=== PATIENT | male | born 1980 | race African-American/Black ===

== ENCOUNTER 2017-04-11 19:44 | Emergency (ER) | payer SELFPAY ==
[~2017-04-11] VITALS: Ht 167.6 cm; Wt 86.2 kg
[2017-04-11] MEDS ORDERED: IV NORMAL SALINE 1000ML BAG 1,000 ML IV SCH ×3 (19:52→20:27)
[2017-04-11] MEDS ORDERED: IV DEXTROSE 5 %-0.45 % NACL 1,000 ML IV SCH (19:55)
[2017-04-11] MEDS ORDERED: INSULIN REGULAR VIAL 150 UNIT in 0.9 % SODIUM CHLORIDE 150ML 150 ML IV PRN (20:00)
[2017-04-11] MEDS ORDERED: KETOROLAC TROMETHAMINE 30 MG/ML INJ. IV ONE (20:00)
[2017-04-11] MEDS ORDERED: HYDROmorphone 2 MG/ML VIAL IV/SQ PRN (20:00)
[2017-04-11] MEDS ORDERED: ONDANSETRON PF 4 MG/2 ML VIAL. IV ONE (20:00)
[2017-04-11] MEDS ORDERED: POTASSIUM CHLORIDE 10MEQ 100 ML IV PRN ×3 (20:00)
[2017-04-11] MEDS ORDERED: 0.9 % SODIUM CHLORIDE 10 ML DISP.SYRIN. IV PRN ×2 (20:00→20:30)
--- NOTE | 2017-04-11 20:08 | PHYS DOC ---
Past Medical History Past Medical History: Asthma, Kidney Stone Past Surgical History: Other Additional Past Surgical Histo: LITHOTRIPSY,BILAT ORIF FEMUR Alcohol Use: Occasionally Drug Use: None Adult General Chief Complaint Chief Complaint: ABDOMINAL PAIN [facility] HPI Patient is a 36 year old -[place] male with history of kidney stones and asthma who presents with flank pain that began early this morning. Patient feels like it's his prior kidney stones with pain that began in the flank on the left with radiation to the left lower groin. Impression is expressing some nausea without vomiting no diarrhea past patient isn't pain is worse with range of motion of the hip as well as the abdomen with twisting. Patient also says pain is also increased with eating. He denies any fevers, chills, UTI symptoms except he did remember that the pain began when he was urinating this morning. He denies any hematuria, denies any penile discharge or history of STDs. He denies any direct trauma. He does work in an and air-conditioned environment and he said frequent kidney stones in the past. He recalls a history of renal failure acutely with obstruction. His pain Presently is 7 of 10 patient did not take any pain medications prior to arrival. He's been trying to drink a great deal fluids. Review of Systems Review of Systems Constitutional: Patient denies any fevers but has had some chills with flank pain. Eyes: Denies change in visual acuity, redness, or eye pain [] HENT: Denies nasal congestion or sore throat [] Respiratory: Denies cough or shortness of breath [] Cardiovascular: No additional information not addressed in HPI [] GI: Describes left flank pain with radiation to the left lower quadrant. With some nausea without vomiting no diarrhea or constipation. : Denies dysuria or hematuria [] Musculoskeletal: He does have some back pain on the left that is related to the abdominal wall pain. Integument: Denies rash or skin lesions [] Neurologic: Denies headache, focal weakness or sensory changes [] Endocrine: Denies polyuria or polydipsia [] Current Medications Current Medications Current Medications Medications (Trade) Dose Ordered Sig/Guillermo Start Time Stop Time Status Last Admin Dose Admin Dextrose/Sodium Chloride 1,000 ml @ 250 mls/hr Q4H 04/11/17 19:55 Cancel Hydromorphone HCl (Dilaudid) 1 mg PRN Q15MIN PRN 7/18/17 20:00 04/11/17 20:11 DC Insulin Human Regular 150 unit/ Sodium Chloride 151.5 ml @ 0 mls/hr CONT PRN PRN 04/11/17 20:00 Cancel Ketorolac Tromethamine (Toradol) 30 mg 1X ONCE 04/11/17 20:00 04/11/17 20:07 DC 04/11/17 20:13 30 MG Ondansetron HCl (Zofran) 4 mg 1X ONCE 04/11/17 20:00 04/11/17 20:11 DC 04/11/17 20:13 4 MG Potassium Chloride 100 ml @ 100 mls/hr PRN Q1HR PRN 04/11/17 20:00 Cancel Sodium Chloride (Normal Saline Flush) 10 ml QSHIFT PRN 04/11/17 20:30 04/11/17 20:37 10 ML Allergies Allergies Allergies Coded Allergies Type Severity Reaction Last Updated Verified No Known Drug Allergies 03/03/16 No Physical Exam Physical Exam This patient's vital signs were reviewed upon arrival patient noted to be hypertensive. As normal vital signs. Constitutional: Well developed, well nourished, she looks like he is uncomfortable but not diaphoretic on toxic in appearance HENT: Normocephalic, atraumatic, bilateral external ears normal, oropharynx moist, no oral exudates, nose normal. [] Cardiovascular:Heart rate regular rhythm, no murmur [] Lungs & Thorax: Bilateral breath sounds clear to auscultation [] Abdomen: Bowel sounds normal, soft, no tenderness, no masses, no pulsatile masses. [] Skin: Warm, dry, no erythema, no rash. [] Back: No tenderness, does demonstrates CVA tenderness on the left. Extremities: No tenderness, no cyanosis, no clubbing, ROM intact, no edema. [] Neurologic: Alert and oriented X 3, normal motor function, normal sensory function, no focal deficits noted. [] Psychologic: Affect normal, judgement normal, mood normal. [] Current Patient Data Vital Signs Vital Signs Date Time Temp Pulse Resp B/P (MAP) Pulse Ox O2 Delivery O2 Flow Rate FiO2 04/11/17 21:40 88 18 130/78 (95) 99 Room Air 04/11/17 19:59 97.9 97.9 Lab Values Laboratory Tests Test 04/11/17 20:00 04/11/17 22:39 White Blood Count 8.7 x10^3/uL (4.0-11.0) Red Blood Count 5.03 x10^6/uL (4.30-5.70) Hemoglobin 14.6 g/dL (13.0-17.5) Hematocrit 44.8 % (39.0-53.0) Mean Corpuscular Volume 89 fL (79-100) Mean Corpuscular Hemoglobin 29 pg (25-35) Mean Corpuscular Hemoglobin Concent 33 g/dL (31-37) Red Cell Distribution Width 13.7 % (11.5-14.5) Platelet Count 324 x10^3/uL (140-400) Neutrophils (%) (Auto) 61 % (31-73) Lymphocytes (%) (Auto) 24 % (24-48) Monocytes (%) (Auto) 11 % (0-9) H Eosinophils (%) (Auto) 3 % (0-3) Basophils (%) (Auto) 1 % (0-3) Neutrophils # (Auto) 5.3 x10^3uL (1.8-7.7) Lymphocytes # (Auto) 2.1 x10^3/uL (1.0-4.8) Monocytes # (Auto) 1.0 x10^3/uL (0.0-1.1) Eosinophils # (Auto) 0.3 x10^3/uL (0.0-0.7) Basophils # (Auto) 0.0 x10^3/uL (0.0-0.2) Sodium Level 142 mmol/L (136-145) Potassium Level 3.5 mmol/L (3.5-5.1) Chloride Level 106 mmol/L (98-107) Carbon Dioxide Level 28 mmol/L (21-32) Anion Gap 8 (6-14) Blood Urea Nitrogen 15 mg/dL (8-26) Creatinine 1.2 mg/dL (0.7-1.3) Estimated GFR (Cockcroft-Gault) 82.4 BUN/Creatinine Ratio 13 (6-20) Glucose Level 102 mg/dL (70-99) H Calcium Level 8.8 mg/dL (8.5-10.1) Total Bilirubin 0.3 mg/dL (0.2-1.0) Aspartate Amino Transferase (AST) 23 U/L (15-37) Alanine Aminotransferase (ALT) 39 U/L (16-63) Alkaline Phosphatase 79 U/L (46-116) Total Protein 7.3 g/dL (6.4-8.2) Albumin 3.6 g/dL (3.4-5.0) Albumin/Globulin Ratio 1.0 (1.0-1.7) Lipase 118 U/L (73-393) Urine Collection Type U cath Urine Color Yellow Urine Clarity Clear Urine pH 5.5 Urine Specific [place] 1.025 Urine Protein Negative mg/dL (NEG-TRACE) Urine Glucose (UA) Negative mg/dL (NEG) Urine Ketones (Stick) Negative mg/dL (NEG) Urine Blood Moderate (NEG) Urine Nitrite Negative (NEG) Urine Bilirubin Negative (NEG) Urine Urobilinogen Dipstick 0.2 mg/dL (0.2 mg/dL) Urine Leukocyte Esterase Negative (NEG) Urine RBC 11-20 /HPF (0-2) Urine WBC 1-4 /HPF (0-4) Urine Bacteria 0 /HPF (0-FEW) Urine Hyaline Casts Few /HPF Urine Mucus Mod /LPF Laboratory Tests 04/11/17 20:00 Laboratory Tests 04/11/17 20:00 EKG EKG [] Radiology/Procedures Radiology/Procedures [] [address] [place] [address] IMAGING REPORT Signed PATIENT: HENRY DEWITT ACCOUNT: [id number] : 1980 LOCATION: ER AGE: 36 SEX: M EXAM STATUS: REG ER ORD. PHYSICIAN: FRANKIE AGUIRRE MD REASON: left flank pain with history of kidney stones PROCEDURE: CT ABDOMEN PELVIS WO CONTRAST CT study of the abdomen and pelvis without contrast Clinical indications: Severe left flank pain since yesterday. History of kidney stones. TECHNIQUE: Noncontrast helical CT scanning of the abdomen and pelvis was performed. Without contrast, the sensitivity to detect organ pathology and GI tract pathology is decreased. PQRS compliance Statement One or more of the following individualized dose reduction techniques were utilized for this study: 1. Automated exposure control 2. Adjustment of the mA and/or kV according to patient size 3. Use of iterative reconstruction technique COMPARISON: CT study March 03, 2016. FINDINGS: The liver and spleen and pancreas are homogeneous in appearance on this noncontrast study. The gallbladder is normal and no extra hepatic biliary ductal dilatation is seen. No adrenal mass is evident. There is moderate left-sided hydronephrosis and proximal left hydroureter due to a stone within the proximal left ureter measuring 4 mm in size located 2 cm distal to the UPJ. No hydronephrosis is seen on the right side. Urinary bladder wall is smooth. No focal aneurysmal dilatation of the abdominal aorta is seen. No enlarged abdominal or pelvic lymphadenopathy is seen. No obstructive bowel pattern is seen. No free air or free fluid or mesenteric inflammatory change is seen. No lung base consolidation is evident. No osteolytic process is seen. IMPRESSION: Moderate left-sided hydronephrosis and proximal left hydroureter due to a 4 mm stone located within the proximal left ureter 2 cm from the UPJ. Electronically signed by: Enoch Vásquez MD (04/11/2017 9:53 PM) [facility] [id number] DICTATED and SIGNED BY: ENOCH VÁSQUEZ MD DATE: 04/11/17 2149 CC: FRANKIE AGUIRRE MD; UNKNOWN PCP NAME ~ Course & Med Decision Making Course & Med Decision Making Pertinent Labs and Imaging studies reviewed. (See chart for details) Initially presents with flank pain concerning presentation for possible kidney stone. Patient has no fevers, no chills at this time. He is able to produce urine without issue. My concern is a kidney stone during his history of renal failure secondary to obstruction while the CAT scan completed as well as CMP CBC and urinalysis. In the interim he'll be provided fluids, antiemetics and pain meds. Patient's laboratory work was reviewed by me patient's CBC is normal, CMP is normal, lipase is normal, urinalysis is still pending at this time. Patient's CT abdomen and pelvis demonstrates a kidney stone Moderate left-sided hydronephrosis and proximal left hydroureter due to a 4 mm stone located within the proximal left ureter 2 cm from the UPJ. Patient's pain is improved and is under better control at 10:10 PM patient is not giving us a urine sample. Time is now 11 PM patient's urinalysis finally complete demonstrates no signs of infection. He has red blood cells without bacteria or white blood cells. Patient is feeling markedly better already patient we provided literature and medications to treat his kidney stone. Which at 4 mm is likely to pass spontaneously. He's been given precautions reasons to return. Asked to follow- up with his urologist as an outpatient on his discretion. [] Dragon Disclaimer Dragon Disclaimer This electronic medical record was generated, in whole or in part, using a voice recognition dictation system. Departure Departure Impression: Primary Impression: Ureteral calculus, left Disposition: HOME, SELF-CARE Condition: IMPROVED Referrals: UNKNOWN PCP NAME (PCP) Patient Instructions: Diet for Kidney Stones, Kidney Stones Additional Instructions: Please return for any new or increasing symptoms, if he cannot urinate greater than 12 hours, if you have any fever greater than 102.2 and pain with urination or given any question concerns. These return if your pain is not well controlled with oral medications.. Scripts Ondansetron (ZOFRAN ODT) 4 Mg Tab.rapdis 4 MG PO BID Y for NAUSEA/VOMITING for 5 Days, #10 TAB Prov: FRANKIE AGUIRRE MD 04/11/17 Naproxen (NAPROSYN) 500 Mg Tablet 1 TAB PO BID, #14 TAB 1 Refill Prov: FRANKIE AGUIRRE MD 04/11/17 Hydrocodone Bit/Acetaminophen (HYDROCODONE-APAP 5-325 ) 1 Each Tablet 1-2 TAB PO PRN Q6HRS Y for PAIN for 5 Days, #15 TAB 0 Refills Prov: FRANKIE AGUIRRE MD 04/11/17 Tamsulosin Hcl (FLOMAX) 0.4 Mg Cap.er.24h 1 CAP PO DAILY, #30 CAP 11 Refills Prov: FRANKIE AGUIRRE MD 04/11/17 FRANKIE AGUIRRE MD Apr 11, 2017 20:08
[2017-04-11 20:36] LABS: BASO % 1 % (0-3); EOS % 3 % (0-3); HEMATOCRIT 44.8 % (39.0-53.0); HEMOGLOBIN 14.6 g/dL (13.0-17.5); LYMPH # 2.1 x10^3/uL (1.0-4.8); LYMPH % 24 % (24-48); MEAN CORPUSCULAR HEMOGLOBIN 29 pg (25-35); MEAN CORPUSCULAR HGB CONC 33 g/dL (31-37); MEAN CORPUSCULAR VOLUME 89 fL (79-100); MONO % 11 % (0-9); NEUT % 61 % (31-73); PLATELET COUNT 324 x10^3/uL (140-400); RED BLOOD COUNT 5.03 x10^6/uL (4.30-5.70); RED CELL DISTRIBUTION WIDTH 13.7 % (11.5-14.5); WHITE BLOOD COUNT 8.7 x10^3/uL (4.0-11.0)
[2017-04-11 20:56] LABS: CALCIUM 8.8 mg/dL (8.5-10.1); CREATININE 1.2 mg/dL (0.7-1.3); GFR 82.4; POTASSIUM 3.5 mmol/L (3.5-5.1)
[2017-04-11 21:01] LABS: ALBUMIN 3.6 g/dL (3.4-5.0); TOTAL BILIRUBIN 0.3 mg/dL (0.2-1.0); TOTAL PROTEIN 7.3 g/dL (6.4-8.2)
[2017-04-11 21:40] VITALS: BP 130/78
--- NOTE | 2017-04-11 21:56 | RAD ---
CT study of the abdomen and pelvis without contrast Clinical indications: Severe left flank pain since yesterday. History of kidney stones. TECHNIQUE: Noncontrast helical CT scanning of the abdomen and pelvis was performed. Without contrast, the sensitivity to detect organ pathology and GI tract pathology is decreased. PQRS compliance Statement One or more of the following individualized dose reduction techniques were utilized for this study: 1. Automated exposure control 2. Adjustment of the mA and/or kV according to patient size 3. Use of iterative reconstruction technique COMPARISON: CT study March 03, 2016. FINDINGS: The liver and spleen and pancreas are homogeneous in appearance on this noncontrast study. The gallbladder is normal and no extra hepatic biliary ductal dilatation is seen. No adrenal mass is evident. There is moderate left-sided hydronephrosis and proximal left hydroureter due to a stone within the proximal left ureter measuring 4 mm in size located 2 cm distal to the UPJ. No hydronephrosis is seen on the right side. Urinary bladder wall is smooth. No focal aneurysmal dilatation of the abdominal aorta is seen. No enlarged abdominal or pelvic lymphadenopathy is seen. No obstructive bowel pattern is seen. No free air or free fluid or mesenteric inflammatory change is seen. No lung base consolidation is evident. No osteolytic process is seen. IMPRESSION: Moderate left-sided hydronephrosis and proximal left hydroureter due to a 4 mm stone located within the proximal left ureter 2 cm from the UPJ. Electronically signed by: Anthony Vásquez MD (04/11/2017 9:53 PM) [facility]
[2017-04-11 22:47] LABS: BILIRUBIN,URINE NEGATIVE (NEG); GLUCOSE,URINE NEGATIVE (NEG); NITRITE,URINE NEGATIVE (NEG); PH,URINE 5.5; PROTEIN,URINE NEGATIVE (NEG-TRACE); UROBILINOGEN,URINE 0.2 mg/dL (0.2 mg/dL)
[2017-04-11 22:53] LABS: BACTERIA,URINE 0 /HPF (0-FEW)
[2017-04-11] MEDS ORDERED: HYDR-2758 PO (23:05)
[2017-04-11] MEDS ORDERED: TAMS0.4C97 PO (23:05)
[2017-04-11] MEDS ORDERED: ONDA4TAB10 PO (23:06)
[2017-04-11] MEDS ORDERED: NAPR500T PO (23:06)
== END 2017-04-11 23:17 | disposition home or self-care (01) ==
LOC: ER 19:55
DX: N20.1 Calculus of ureter (principal); Z87.442 Personal history of urinary calculi; J45.909 Unspecified asthma, uncomplicated
CPT/HCPCS: 36415; 51701; 74176; 80053; 81001; 83690; 85027; 96361; 96374; 96375; 99285; J1885; J2405; J7030

== ENCOUNTER 2019-05-05 13:12 | Emergency (ER) | payer SELFPAY ==
[~2019-05-05] VITALS: Ht 167.6 cm; Wt 83.9 kg
[~2019-05-05 13:12] MED LIST: CEPH-264 PO; HYDR-2761 PO; NAPR-683 PO; ONDA4TAB10 PO; TAMS0.4C97 PO
[2019-05-05] MEDS ORDERED: IV NORMAL SALINE 1000ML BAG 1,000 ML IV ONE (13:15)
--- NOTE | 2019-05-05 13:22 | PHYS DOC ---
Past Medical History Past Medical History: Asthma, Kidney Stone Past Surgical History: Other Additional Past Surgical Histo: LITHOTRIPSY,BILAT ORIF FEMUR Alcohol Use: Occasionally Drug Use: None Adult General Chief Complaint Chief Complaint: NEAR SYNCOPE HPI HPI Patient is a 38 year old male who brought in by EMS for passing out during donating plasma. Patient states he donated plasma twice a week and today while he was at the end of donating plasma on the bed felt dizzy and had loss of consc iousness. Plasma center staff stated he had seizure activity lasted for a few seconds. EMS reported that the patient was not postictal condition and the presentation was not likely a seizure activity. Patient denies any pain and complaining of mild weakness. Patient states he didn't eat like his usual today. Review of Systems Review of Systems Constitutional: Denies fever or chills [] Eyes: Denies change in visual acuity, redness, or eye pain [] HENT: Denies nasal congestion or sore throat [] Respiratory: Denies cough or shortness of breath [] Cardiovascular: No additional information not addressed in HPI [] GI: Denies abdominal pain, nausea, vomiting, bloody stools or diarrhea [] : Denies dysuria or hematuria [] Musculoskeletal: Denies back pain or joint pain [] Integument: Denies rash or skin lesions [] Neurologic: Denies headache, focal weakness or sensory changes [] Endocrine: Denies polyuria or polydipsia [] All other systems were reviewed and found to be within normal limits, except as documented in this note. Current Medications Current Medications Current Medications Medications (Trade) Dose Ordered Sig/[facility] Start Time Stop Time Status Last Admin Dose Admin Sodium Chloride 1,000 ml @ 1,000 mls/hr 1X ONCE 05/05/19 13:15 05/05/19 14:14 DC 05/05/19 14:14 1,000 MLS/HR Allergies Allergies Allergies Coded Allergies Type Severity Reaction Last Updated Verified No Known Drug Allergies 03/03/16 No Physical Exam Physical Exam Constitutional: Well developed, well nourished, no acute distress, non-toxic appearance. [] HENT: Normocephalic, atraumatic, oropharynx moist, no tongue injury. Eyes: PERRLA, EOMI, conjunctiva normal, no discharge. [] Neck: Normal range of motion, no tenderness, supple, no stridor. [] Cardiovascular:Heart rate regular rhythm, no murmur [] Lungs & Thorax: Bilateral breath sounds clear to auscultation [] Abdomen: Bowel sounds normal, soft, no tenderness, no masses, no pulsatile masses. [] Skin: Warm, dry, no erythema, no rash. [] Back: No tenderness, no CVA tenderness. [] Extremities: No tenderness, no cyanosis, no clubbing, ROM intact, no edema. [] Neurologic: Alert and oriented X 3, normal motor function, normal sensory function, no focal deficits noted. [] Psychologic: Affect normal, judgement normal, mood normal. [] Current Patient Data Vital Signs Vital Signs Date Time Temp Pulse Resp B/P (MAP) Pulse Ox O2 Delivery O2 Flow Rate FiO2 05/05/19 13:20 97.9 79 18 117/74 (88) 95 Room Air 97.9 Lab Values Laboratory Tests Test 05/05/19 13:50 05/05/19 14:10 05/05/19 15:42 Sodium Level 146 mmol/L (136-145) H Potassium Level 3.4 mmol/L (3.5-5.1) L Chloride Level 105 mmol/L (98-107) Carbon Dioxide Level 30 mmol/L (21-32) Anion Gap 11 (6-14) Blood Urea Nitrogen 8 mg/dL (8-26) Creatinine 1.2 mg/dL (0.7-1.3) Estimated GFR (Cockcroft-Gault) 81.6 BUN/Creatinine Ratio 7 (6-20) Glucose Level 137 mg/dL (70-99) H Calcium Level 8.5 mg/dL (8.5-10.1) Total Bilirubin 0.4 mg/dL (0.2-1.0) Aspartate Amino Transferase (AST) 20 U/L (15-37) Alanine Aminotransferase (ALT) 25 U/L (16-63) Alkaline Phosphatase 61 U/L (46-116) Troponin I Quantitative 0.072 ng/mL (0.000-0.055) 0.060 ng/mL (0.000-0.055) Total Protein 6.4 g/dL (6.4-8.2) Albumin 3.1 g/dL (3.4-5.0) L Albumin/Globulin Ratio 0.9 (1.0-1.7) L White Blood Count 15.1 x10^3/uL (4.0-11.0) H Red Blood Count 6.12 x10^6/uL (4.30-5.70) H Hemoglobin 18.1 g/dL (13.0-17.5) H Hematocrit 54.0 % (39.0-53.0) H Mean Corpuscular Volume 88 fL (79-100) Mean Corpuscular Hemoglobin 30 pg (25-35) Mean Corpuscular Hemoglobin Concent 34 g/dL (31-37) Red Cell Distribution Width 14.3 % (11.5-14.5) Platelet Count 335 x10^3/uL (140-400) Neutrophils (%) (Auto) 76 % (31-73) H Lymphocytes (%) (Auto) 15 % (24-48) L Monocytes (%) (Auto) 7 % (0-9) Eosinophils (%) (Auto) 2 % (0-3) Basophils (%) (Auto) 1 % (0-3) Neutrophils # (Auto) 11.5 x10^3/uL (1.8-7.7) H Lymphocytes # (Auto) 2.2 x10^3/uL (1.0-4.8) Monocytes # (Auto) 1.1 x10^3/uL (0.0-1.1) Eosinophils # (Auto) 0.3 x10^3/uL (0.0-0.7) Basophils # (Auto) 0.1 x10^3/uL (0.0-0.2) Laboratory Tests 05/05/19 14:10 Laboratory Tests 05/05/19 13:50 EKG EKG EKG interpreted by me. EKG at 1331 showed normal sinus rhythm at rate of 78, no acute ST and T-wave abnormalities, normal DC and QT intervals. Radiology/Procedures Radiology/Procedures [facility] [address] [place] [address] IMAGING REPORT Signed PATIENT: HENRY DEWITT ACCOUNT: [id number] : 1980 LOCATION: ER AGE: 38 SEX: M EXAM STATUS: PRE ER ORD. PHYSICIAN: ARMOND NAVARRO MD REASON: possible seizure PROCEDURE: CT HEAD WO CONTRAST PQRS Compliance Statement: One or more of the following individualized dose reduction techniques were utilized for this examination: 1. Automated exposure control 2. Adjustment of the mA and/or kV according to patient size 3. Use of iterative reconstruction technique CT HEAD WITHOUT CONTRAST History: Possible seizure. Comparison: None. Procedure: Axial images are obtained of the head from the skull base through the vertex without IV contrast. Findings: The ventricles and sulci are normal for the patient's age. No mass-effect, midline shift, hemorrhage, extra-axial fluid collection, or obvious acute infarction is identified. Basilar cisterns are patent. Bone windows demonstrate no acute calvarial abnormality. Mucosal thickening bilateral ethmoid sinuses. Minimal mucosal thickening bilateral sphenoid sinuses. Maxillary sinuses mostly not imaged. Mastoid air cells are well aerated. IMPRESSION: No acute intracranial abnormality. Electronically signed by: Gianfranco Conner MD (05/05/2019 1:51 PM) [facility] DICTATED and SIGNED BY: GIANFRANCO CONNER MD DATE: 05/05/19 9867 Course & Med Decision Making Course & Med Decision Making Pertinent Labs and Imaging studies reviewed. (See chart for details) Evaluation of patient in ER showed 38-year-old male patient brought in by EMS because of near-syncope and questionable seizure activity after donation plasma. Patient had unremarkable CT of head and EKG. Labs showed elevation of troponin and repeat pulling D showed decrease of urine. Patient did not have chest pain and was alert and oriented and ambulated without problem. Patient treated with IV fluids with improvement of his condition and was advised to increase fluid intake. Dragon Disclaimer Dragon Disclaimer This electronic medical record was generated, in whole or in part, using a voice recognition dictation system. Departure Departure Impression: Primary Impression: Vasovagal near syncope Additional Impressions: Dehydration Elevated troponin I level Hypokalemia Disposition: 01 HOME, SELF-CARE (at 1635) Condition: IMPROVED Referrals: UNKNOWN PCP NAME (PCP) Patient Instructions: Dehydration, Adult, Dizziness, Hypokalemia Additional Instructions: Drink plenty of liquids Follow-up with your primary care physician in 3-5 days Return to ER if not getting better Problem Qualifiers ARMOND NAVARRO MD May 05, 2019 13:22
--- NOTE | 2019-05-05 13:54 | RAD ---
PQRS Compliance Statement: One or more of the following individualized dose reduction techniques were utilized for this examination: 1. Automated exposure control 2. Adjustment of the mA and/or kV according to patient size 3. Use of iterative reconstruction technique CT HEAD WITHOUT CONTRAST History: Possible seizure. Comparison: None. Procedure: Axial images are obtained of the head from the skull base through the vertex without IV contrast. Findings: The ventricles and sulci are normal for the patient's age. No mass-effect, midline shift, hemorrhage, extra-axial fluid collection, or obvious acute infarction is identified. Basilar cisterns are patent. Bone windows demonstrate no acute calvarial abnormality. Mucosal thickening bilateral ethmoid sinuses. Minimal mucosal thickening bilateral sphenoid sinuses. Maxillary sinuses mostly not imaged. Mastoid air cells are well aerated. IMPRESSION: No acute intracranial abnormality. Electronically signed by: Obdulio Mir MD (05/05/2019 1:51 PM) [facility]
[2019-05-05 14:28] LABS: BASO # 0.1 x10^3/uL (0.0-0.2); BASO % 1 % (0-3); EOS # 0.3 x10^3/uL (0.0-0.7); EOS % 2 % (0-3); HEMOGLOBIN 18.1 g/dL (13.0-17.5); LYMPH # 2.2 x10^3/uL (1.0-4.8); LYMPH % 15 % (24-48); MEAN CORPUSCULAR HEMOGLOBIN 30 pg (25-35); MEAN CORPUSCULAR HGB CONC 34 g/dL (31-37); MEAN CORPUSCULAR VOLUME 88 fL (79-100); MONO # 1.1 x10^3/uL (0.0-1.1); MONO % 7 % (0-9); NEUT # 11.5 x10^3/uL (1.8-7.7); NEUT % 76 % (31-73); PLATELET COUNT 335 x10^3/uL (140-400); RED BLOOD COUNT 6.12 x10^6/uL (4.30-5.70); RED CELL DISTRIBUTION WIDTH 14.3 % (11.5-14.5); WHITE BLOOD COUNT 15.1 x10^3/uL (4.0-11.0)
[2019-05-05 14:41] LABS: ALBUMIN 3.1 g/dL (3.4-5.0); ALBUMIN/GLOBULIN RATIO 0.9 (1.0-1.7); CALCIUM 8.5 mg/dL (8.5-10.1); POTASSIUM 3.4 mmol/L (3.5-5.1); TOTAL BILIRUBIN 0.4 mg/dL (0.2-1.0); TOTAL PROTEIN 6.4 g/dL (6.4-8.2)
[2019-05-05 14:47] LABS: CREATININE 1.2 mg/dL (0.7-1.3); GFR 81.6
[2019-05-05 16:00] VITALS: BP 100/66
--- NOTE | 2019-05-06 06:30 | EKG ---
[facility] [address] [place] [address] Test Date: 2019-05-05 Test Time: 13:31:11 Pat Name: HENRY DEWITT Department: Room: Gender: Court Administrator: : 1980 Requested By: ARMOND NAVARRO Order Number: [id number] Reading MD: Measurements Intervals [place] Rate: 78 P: 30 SC: 120 QRS: 28 QRSD: 72 T: 44 QT: 364 QTc: 418 Interpretive Statements SINUS RHYTHM R-S TRANSITION ZONE IN V LEADS DISPLACED TO THE RIGHT OTHERWISE NORMAL ECG RI6.01 No previous ECG available for comparison
== END 2019-05-05 17:02 | disposition home or self-care (01) ==
LOC: ER 13:12
DX: R55 Syncope and collapse (principal); E86.0 Dehydration; E87.6 Hypokalemia; R79.89 Other specified abnormal findings of blood chemistry; R56.9 Unspecified convulsions; J45.909 Unspecified asthma, uncomplicated; Z87.442 Personal history of urinary calculi
CPT/HCPCS: 36415; 70450; 80053; 84484; 85025; 93005; 96360; 99285; J7030

== ENCOUNTER 2019-07-26 18:50 | Emergency (ER) | payer SELFPAY ==
[~2019-07-26] VITALS: Ht 167.6 cm; Wt 89.8 kg
[2019-07-26 19:07] VITALS: BP 170/90
[2019-07-26] MEDS ORDERED: MELO7.5T5 PO (20:37)
--- NOTE | 2019-07-26 20:37 | PHYS DOC ---
Past Medical History Past Medical History: Asthma, Kidney Stone (LIZANDRO JOEL APRN) Past Surgical History: Other Additional Past Surgical Histo: LITHOTRIPSY,BILAT ORIF FEMUR (LIZANDRO JOEL APRN) Alcohol Use: Occasionally Drug Use: None (LIZANDRO JOEL APRN) Attending Signature I have participated in the care of this patient and I have reviewed and agree with all pertinent clinical information above including history, exam, and recommendations. (ANTONI CHACKO MD) Adult General Chief Complaint Chief Complaint: SHOULDER INJURY HPI HPI Patient is a 39 year old male who presents with chronic shoulder pain from overuse and playing sports when younger. Patient states he was seen last week and given a Toradol shot in the ER and states help. Patient states he started urine new job with [employer] and he has increased movement with the right shoulder does cause increased pain. Patient rates his pain 8 out of 10. Patient states he has been using icy hot, lidocaine patches, naproxen, ibuprofen, ice or heat. (LIZANDRO JOEL APRN) Review of Systems Review of Systems Musculoskeletal: Denies back pain. Right shoulder pain joint pain [] All other systems were reviewed and found to be within normal limits, except as documented in this note. (LIZANDRO JOEL APRN) Allergies Allergies Allergies Coded Allergies Type Severity Reaction Last Updated Verified No Known Drug Allergies 03/03/16 No (ANTONI CHACKO MD) Physical Exam Physical Exam Constitutional: Well developed, well nourished, no acute distress, non-toxic appearance. [] Skin: Warm, dry, no erythema, no rash. [] Extremities: No tenderness, no cyanosis, no clubbing, Rigth shoulder ROM intact but painful, no edema. [] Neurologic: Alert and oriented X 3, normal motor function, normal sensory function, no focal deficits noted. [] Psychologic: Affect normal, judgement normal, mood normal. [] (LIZANDRO JOEL APRN) Current Patient Data Vital Signs Vital Signs Date Time Temp Pulse Resp B/P (MAP) Pulse Ox O2 Delivery O2 Flow Rate FiO2 07/26/19 19:07 98.1 74 20 170/90 (116) 99 Room Air 98.1 (ANTONI CHACKO MD) EKG EKG [] (LIZANDRO JOEL APRN) Radiology/Procedures Radiology/Procedures [] (LIZANDRO JOEL APRN) Course & Med Decision Making Course & Med Decision Making I had [facility] the patietn as the chart states self pay. Registration states that the patient does have insurance and he is going to bring the card back up tot the hospital. Patient has full range of motion of the right shoulder. Patient does have pain with range of motion. Patient denies any numbness or tingling, there is no swelling of the extremity. No deformity or bruising. No laxity in the joint. Patient denies injury. Radial pulses strong and present. Cap refill less than 3 seconds. Skin pink warm and dry. (LIZANDRO JOEL APRN) Dragon Disclaimer Dragon Disclaimer This electronic medical record was generated, in whole or in part, using a voice recognition dictation system. (LIZANDRO JOEL APRN) Departure Departure Impression: Primary Impression: Chronic shoulder pain Disposition: HOME, SELF-CARE Condition: STABLE Referrals: NO PCP (PCP) Patient Instructions: Shoulder Pain Additional Instructions: Follow up with a doctor as soon as possible. Rest the shoulder as soon as possible. Scripts Meloxicam (MOBIC) 7.5 Mg Tablet 1 TAB PO DAILY, #30 TAB 1 Refill Prov: LIZANDRO JOEL APRN 07/26/19 Problem Qualifiers Primary Impression: Chronic shoulder pain Laterality: right Qualified Codes: M25.511 - Pain in right shoulder; G89.29 - Other chronic pain LIZANDRO OJEL APRN Jul 26, 2019 20:37 ANTONI CHACKO MD Jul 27, 2019 18:16
== END 2019-07-26 20:45 | disposition home or self-care (01) ==
LOC: ER 18:50
DX: G89.29 Other chronic pain (principal); M25.511 Pain in right shoulder; J45.909 Unspecified asthma, uncomplicated; Z87.442 Personal history of urinary calculi
CPT/HCPCS: 99283